=== PATIENT | male | born 1965 | race Caucasian/White ===

== ENCOUNTER → 2017-12-28 | Outpatient (CLI) | payer OTHER ==
[~2017-12-28] VITALS: Ht 172.7 cm; Wt 77.1 kg
[~2017-12-28] MED LIST: ASPIR 8181 MG PO; CENTRUM SILVER1 EAC2 PO; COPAXONE20 MG/SYR SUBQ; ZOLOFT50 MG PO
--- NOTE | ~2017-12-28 | PATH ---
[facility] [place] [address] PATHOLOGY RPT PROCEDURE Name: ANDREW THOMASON Yuliya Room #: REG STEFANIE Tidwell#: [id number] Admission: 12/28/17 Date of : 61 Discharge: Report #: [id number] Path Case #: [id number] [facility] Accession Number: [id number] . 01 Material submitted: . POLYP AT RECTUM . 01 Clinician provided ICD-10: Z12.11 . 01 Clinical history: . Pre-OP DX: Screening Post-OP DX: Polyp (colon) . 02 Diagnosis: Polyp, at rectum, endoscopic biopsy: - Tubulovillous adenoma. - Negative for high-grade dysplasia. - Unremarkable mucosa present at base focally (please see comment). (IUV:lucy; 12/29/2017) QMS/12/29/2017 . 02 Comment: There is no stalk present in most sections examined. Focal stalk is identified with unremarkable mucosa. Please correlate with intraoperative/endoscopic findings for complete removal of this polyp. (IUV:lucy; 12/29/2017) . 02 Electronically signed: . Dorota Varma MD, Pathologist NPI- [id number] . 01 Gross description: . Received in formalin labeled "Andrew Thomason, polyp rectum," is a 1.4 x 1.0 x 1.5 cm polypoid piece of chavez soft tissue. The presumed margin is inked and the specimen is sectioned perpendicular to the margin and entirely submitted in cassette A1 and A2. Additionally received in the same container is a 1.4 x 0.9 x 0.9 cm polypoid piece of chavez soft tissue. The margin is inked and the specimen is sectioned perpendicular to the margin and entirely submitted in cassette A3. (TSD; 12/28/2017) TOB/TOB . 02 Pathologist provided ICD-10: D12.8 . 02 [place] [address] PATHOLOGY RPT PROCEDURE Name: ANDREW THOMASON Room #: REG [facility]#: [id number] Admission: 12/28/17 Date of : 61 Discharge: Report #: [id number] Path Case #: [id number] Specimen Comment: A courtesy copy of this report has been sent to Specimen Comment: [phone], . Specimen Comment: Report sent to / JOSE Performed at: [address], [place], [place] [id number] MD Delgado Rosario MD Phone: [phone] Performed at: [address] [id number] MD Dorota Varma MD Phone: [phone]
--- NOTE | ~2017-12-28 | P ---
[facility] [place] [address] [place] [address] PROCEDURE REPORT Name: MARISSA SINGH Room #: [facility] [id number] Admission: 12/28/17 Attend Phys: Nathaniel Ruiz Discharge: Date of : 61 Report #: [id number] THIS REPORT FOR: //name// CC: Nathaniel Medina DO DATE OF SERVICE: 12/28/2017 PROCEDURE PERFORMED: Colonoscopy with polypectomy tattoo and endoclip placement. HISTORY OF PRESENT ILLNESS: The patient is a 52-year-old male who presents today for routine screening colonoscopy. No previous history of colonoscopy. Denies any symptoms. No family history of colon cancer. DESCRIPTION OF PROCEDURE: The risks and benefits of the procedure were explained to the patient, those risks including but not limited to bleeding, perforation, the risk of sedation. He understood these risks and gave informed consent. Sedation was given using propofol per anesthesia. Next, a digital rectal exam was initially performed, which was normal. Next, using a standard Olympus colonoscope, the scope was placed in the patient's anus and advanced under direct vision to the cecum. The overall prep was excellent. The cecum and ileocecal valve were normal in appearance. Ascending, transverse, descending and sigmoid colon were all normal. In the rectum, there was a large partially pedunculated polyp approximately 2 cm in size. This was removed by snare cautery. There was no bleeding after polypectomy; however, I was able to see a small visible vessel. Therefore, a single endoclip was placed. I also tattooed the edges of the polypectomy site, otherwise normal rectum. On retroflexion, small nonbleeding internal hemorrhoids were seen. The scope was then withdrawn and the procedure terminated. The patient tolerated the procedure well. IMPRESSION: 1. Large rectal polyp, status post polypectomy with endoclip placement and tattooing of the edges. 2. Small internal hemorrhoids. 3. Otherwise, normal colonoscopy. RECOMMENDATIONS: 1. Await biopsy results. 2. Consider flexible sigmoidoscopy in 6 months to reevaluate polypectomy site. We will await pathology results. [address] [address] PROCEDURE REPORT Name: MARISSA SINGH Room #: REG [facility] Yaw#: [id number] Admission: 12/28/17 Attend Phys: Nathaniel Ruiz Discharge: Date of : 61 Report #: [id number] Thank you for allowing me to participate in his care. <ELECTRONICALLY SIGNED> By: Nathaniel Pike MD 12/30/17 [id number] Nathaniel Pike MD /nt
== END | disposition home or self-care (01) ==
LOC: GI 07:05
DX: Z12.11 Encounter for screening for malignant neoplasm of colon (principal); D12.8 Benign neoplasm of rectum; K64.8 Other hemorrhoids; G35 Multiple sclerosis; G47.33 Obstructive sleep apnea (adult) (pediatric); F32.9 Major depressive disorder, single episode, unspecified; F41.9 Anxiety disorder, unspecified; Z79.82 Long term (current) use of aspirin; Z79.899 Other long term (current) drug therapy; Z98.890 Other specified postprocedural states; Z87.891 Personal history of nicotine dependence; Z88.8 Allergy status to other drugs, medicaments and biological substances
CPT/HCPCS: 62110; 62900